=== PATIENT | male | born 1995 | race Two or more races ===

== ENCOUNTER 2017-05-21 14:57 | Emergency (ER) | payer SELFPAY ==
[~2017-05-21] VITALS: Ht 177.8 cm; Wt 79.4 kg
[2017-05-21 17:24] VITALS: BP 144/76
[2017-05-21] MEDS ORDERED: IBUPROFEN 600 MG TAB PO ONE (17:45)
[2017-05-21] MEDS ORDERED: BACLOFEN 10 MG TAB PO ONE (17:45)
== END 2017-05-21 17:48 | disposition home or self-care (01) ==
LOC: ER 14:57
DX: S46.912A Strain of unspecified muscle, fascia and tendon at shoulder and upper arm level, left arm, initial encounter (principal); S46.911A Strain of unspecified muscle, fascia and tendon at shoulder and upper arm level, right arm, initial encounter; M79.1 Myalgia; V43.02XA Car driver injured in collision with other type car in nontraffic accident, initial encounter; Y93.89 Activity, other specified; Y92.89 Other specified places as the place of occurrence of the external cause; Y99.8 Other external cause status